=== PATIENT | female | born 1965 | race Caucasian/White ===

== ENCOUNTER → 2017-10-09 | Day surgery (SDC) | payer BC, OTHER ==
[2017-09-19 07:39] VITALS: Ht 160 cm; Wt 90.9 kg
[~2017-10-09] VITALS: Ht 160 cm; Wt 90.9 kg
[~2017-10-09] MED LIST: ADVIN25/60 INH; CHOL1TAB42 PO; COQ10 PO; GLC/500 PO; LEVO50TA6 PO; LIDOCAINE HCL 2% 2 ML VIAL (20MG/ML) ONE; MULT-506 PO; PRM625 PO; PROPOFOL IV EMULSION 10 MG/ML 20 ML VIAL IV ONE; SODIUM CHLORIDE 0.9% 500ML 500 ML IV ONE
[2017-10-09 13:39] VITALS: TEMP 37
--- NOTE | 2017-10-09 13:44 | Endo History and Physical ---
History & Physical Date of Service: Oct 09, 2017. Chief Complaint: RLQ pain, and diarrhea Referring Physician: Dr Maxx Dove History of Present Illness change in BM; abd pain Past Surgical History Hx Cardiac Surgery: No Hx Internal Defibrillator: No Hx Pacemaker: No Hx Abdominal Surgery: Yes (RT/LEFT OOPHERECTOMY, CAMI, LAPAROSCOPY'S ) Hx of Implantable Prosthesis: No Hx Post-Op Nausea and Vomiting: No Hx Cancer Surgery: No Hx Thoracic Surgery: No Hx Orthopedic: No Hx Urinary Tract Surgery: No Family History Polyp Social History Smoking Status: Never Smoker Hx Substance Use: No Hx Alcohol Use: Yes (1 GLASS OF WINE 5 X WEEKLY) Allergies Coded Allergies: Erythromycin (Verified Allergy, Intermediate, HIVES, 10/28/09) Penicillins (Verified Allergy, Intermediate, HIVES, 10/28/09) Horse Serum Proteins (Verified Allergy, Unknown, 09/27/05) Metformin (Verified Allergy, Unknown, ELEVATED LACTOSE LEVELS, 10/28/09) Phenol (Verified Allergy, Unknown, RASH,SOB, 10/28/09) Sulfa Drugs (Verified Allergy, Unknown, RASH,HIVES, 10/28/09) Current Medications Reported Home Medications Medications Dose Route/Sig Max Daily Dose Days Date Category Dose Instructions [Coq10] 1 Tab PO DAILY PRN 09/19/17 Reported Advair Diskus 250/50 60 Dose (Fluticasone Prop/Salmeterol) 1 Ea Aerp 1 Puff INH BID PRN 09/19/17 Reported Vitamin D (Cholecalciferol) 5,000 Unit Tab 2 Tab PO QAM 09/19/17 Reported Multivitamin (Multivitamins) Tab 1 Tab PO QAM 09/19/17 Reported Levothyroxine Sodium 50 Mcg Tab 1 Tab PO QAM 09/19/17 Reported Premarin (Estrogens Conjugated) 0.625 Mg Tab 0.625 Mg PO QAM 09/19/17 Reported Glucophage (Metformin Hcl) 500 Mg Tab 500 Mg PO BID 09/19/17 Reported WILL NOT TAKE IF "EATING WELL" Vital Signs Weight (Kilograms): 90.91 Height (Feet): 5 Height (Inches): 3 Physical Exam General Appearance: WD/WN, no apparent distress Respiratory/Chest: Auscultation: breath sounds normal Cardiovascular: Heart Auscultation: RRR Abdomen: Bowel Sounds: normal Inspection & Palpation: soft, non-distended, no tenderness, guarding & rebound Assessment and Plan colonoscopy with biopsy
--- NOTE | 2017-10-09 15:33 | GI REPORT ---
Procedure Date: 10/09/2017 2:58 PM Procedure: Colonoscopy Indications: Abdominal pain in the right lower quadrant, Chronic diarrhea Medicines: Propofol per Anesthesia Complications: No immediate complications. Estimated blood loss: Minimal. Estimated Blood Loss: Estimated blood loss was minimal. Procedure: Pre-Anesthesia Assessment: - Prior to the procedure, a History and Physical was performed, and patient medications and allergies were reviewed. The patient's tolerance of previous anesthesia was also reviewed. The risks and benefits of the procedure and the sedation options and risks were discussed with the patient. All questions were answered, and informed consent was obtained. Prior Anticoagulants: The patient has taken no previous anticoagulant or antiplatelet agents. ASA Grade Assessment: II - A patient with mild systemic disease. After reviewing the risks and benefits, the patient was deemed in satisfactory condition to undergo the procedure. After I obtained informed consent, the scope was passed under direct vision. Throughout the procedure, the patient's blood pressure, pulse, and oxygen saturations were monitored continuously. The scope was introduced through the anus and advanced to the terminal ileum, with identification of the appendiceal orifice and IC valve. The colonoscopy was performed without difficulty. The patient tolerated the procedure well. The quality of the bowel preparation was good. Findings: The perianal and digital rectal examinations were normal. Pertinent negatives include normal sphincter tone, no palpable rectal lesions and no anal lesion or abnormality was detected. The rectum, descending colon, transverse colon, ascending colon and ileum appeared normal. Biopsies were taken with a cold forceps for histology. Estimated blood loss was minimal. Verification of patient identification for the specimen was done by the physician and physical science technician using the patient's name and medical record number. The retroflexed view of the distal rectum and anal verge was normal and showed no anal or rectal abnormalities. The entire examined colon appeared normal. Impression: - The rectum, descending colon, transverse colon, ascending colon and terminal ileum are normal. Biopsied. Recommendation: - Discharge patient to home (ambulatory). - Resume regular diet. - Continue present medications. - Await pathology results. - Repeat colonoscopy for surveillance based on pathology results. - Return to GI clinic with Dr Olivera as previously scheduled. MD Pepe Gramajo MD 10/09/2017 3:32:14 PM This report has been signed electronically. Note Initiated On: 10/09/2017 2:58 PM I attest to the content of the Intraoperative Record and orders documented therein, exceptions below
--- NOTE | 2017-10-09 15:41 | Discharge Instructions ---
Endoscopy Patient Instructions Date / Procedure(s) Performed Oct 09, 2017. Colonoscopy Allergy Information Coded Allergies: Erythromycin (Verified Allergy, Intermediate, HIVES, 10/09/17) Penicillins (Verified Allergy, Intermediate, HIVES, 10/09/17) Sulfa Antibiotics (Verified Allergy, Intermediate, RASH, HIVES, 10/09/17) Horse Serum Proteins (Verified Allergy, Unknown, THROAT SWELLED- A CHILD , 10/09/17) Metformin (Verified Allergy, Unknown, ELEVATED LACTOSE LEVELS, 10/09/17) Phenol (Verified Allergy, Unknown, RASH,SOB, 10/09/17) Discharge Date / Findings Oct 09, 2017. normal colon Medication Instructions Stopped Medication(s): Metformin Restart Stopped Medication(s): Reported Home Medications Medications Dose Route/Sig Max Daily Dose Days Date Category Dose Instructions [Coq10] 1 Tab PO DAILY PRN 09/19/17 Reported Advair Diskus 250/50 60 Dose (Fluticasone Prop/Salmeterol) 1 Ea Aerp 1 Puff INH BID PRN 09/19/17 Reported Vitamin D (Cholecalciferol) 5,000 Unit Tab 2 Tab PO QAM 09/19/17 Reported Multivitamin (Multivitamins) Tab 1 Tab PO QAM 09/19/17 Reported Levothyroxine Sodium 50 Mcg Tab 1 Tab PO QAM 09/19/17 Reported Premarin (Estrogens Conjugated) 0.625 Mg Tab 0.625 Mg PO QAM 09/19/17 Reported Glucophage (Metformin Hcl) 500 Mg Tab 500 Mg PO BID 09/19/17 Reported WILL NOT TAKE IF "EATING WELL" Reported Home Medications Medications Dose Route/Sig Max Daily Dose Days Date Category Dose Instructions [Coq10] 1 Tab PO DAILY PRN 09/19/17 Reported Advair Diskus 250/50 60 Dose (Fluticasone Prop/Salmeterol) 1 Ea Aerp 1 Puff INH BID PRN 09/19/17 Reported Vitamin D (Cholecalciferol) 5,000 Unit Tab 2 Tab PO QAM 09/19/17 Reported Multivitamin (Multivitamins) Tab 1 Tab PO QAM 09/19/17 Reported Levothyroxine Sodium 50 Mcg Tab 1 Tab PO QAM 09/19/17 Reported Premarin (Estrogens Conjugated) 0.625 Mg Tab 0.625 Mg PO QAM 09/19/17 Reported Glucophage (Metformin Hcl) 500 Mg Tab 500 Mg PO BID 09/19/17 Reported WILL NOT TAKE IF "EATING WELL" Provider Instructions Activity Restrictions - No exercising or heavy lifting for 24 hours. - Do not drink alcohol the day of the procedure. - Do not drive a car or operate machinery until the day after the procedure. - Do not make any important decisions or sign important papers in 24 hours after the procedure. Following Day: - Return to full activity which may include returning to work/school. Diet Start your diet with liquids and light foods (jello, soup, juice, toast). Then eat your usual diet if not nauseated. Treatment For Common After Affects For mild abdominal pain, bloating, or excessive gas: - Rest - Eat lightly - Lie on right side Follow-Up Information Follow-up with Dr Maxx Dove as scheduled Anesthesia Information What You Should Know You have had a procedure that required some medicine to reduce anxiety and discomfort. This treatment is called moderate sedation. After receiving the treatment, you may be sleepy, but you will be able to breathe on your own. The effects of the treatment may last for several hours. Follow these instructions along with Activity/Diet recommendations noted above: * Do NOT do anything where dizziness or clumsiness would be dangerous. * Rest quietly at home today, then you can be up and about tomorrow. * Have a responsible person stay with you the rest of today. * You may have had an I.V. today. If so, you may take the dressing off later today. Recommendations Call your doctor if: * Trouble breathing * Continuous vomiting for more than 24 hours * Temperature above 101 degrees * Severe abdominal pain or bloating * Pain not relieved by pain medicine ordered * There is increased drainage or redness from any incision * A large amount of rectal bleeding greater than 2-3 tablespoons. (If you had a polyp/s removed or have hemorrhoids, a small amount of blood - from the rectum is to be expected.) * You have any unanswered questions or concerns. IN THE EVENT OF A SERIOUS EMERGENCY, GO TO THE NEAREST EMERGENCY ROOM Your discharge instructions were prepared by provider Pepe Middleton. Patient Instructions Signature Page Davin Vela Patient (or Guardian) Signature/Date: I have read and understand the instructions given to me by my caregivers. Caregiver/RN/Doctor Signature/Date: The above-named patient and/or guardian has received patient instructions on this date. + Original Patient Signature Page (only) stays with chart. Please make copy for patient.
--- NOTE | 2017-10-09 15:55 | Anesthesiology Progress Note ---
Anesthesia Post Op Note Date & Time Oct 09, 2017 at 15:55 Vital Signs Pain Intensity: 0 Vital Signs Past 12 Hours Date Time Temp Pulse Resp B/P (MAP) Pulse Ox O2 Delivery O2 Flow Rate FiO2 10/09/17 15:42 86 16 138/90 (106) 97 Room Air 10/09/17 15:27 97 16 112/79 (90) 97 Room Air 10/09/17 13:39 37.0 94 20 148/77 (100) 95 Room Air Notes Mental Status: alert / awake / arousable, participated in evaluation Pt Amnestic to Procedure: Yes Nausea / Vomiting: adequately controlled Pain: adequately controlled Airway Patency, RR, SpO2: stable & adequate BP & HR: stable & adequate Hydration State: stable & adequate Anesthetic Complications: no major complications apparent
[2017-10-09 15:57] VITALS: BP 133/83; PULSE 87; O2SAT 94
== END | disposition home or self-care (01) ==
LOC: C.GI 13:02
PROVIDERS: ATTEND Internal Medicine Gastroenterology
DX: R10.31 Right lower quadrant pain (principal); R19.7 Diarrhea, unspecified; R19.4 Change in bowel habit; Z79.84 Long term (current) use of oral hypoglycemic drugs

== ENCOUNTER → 2017-10-25 | Outpatient (CLI) | payer OTHER ==
[~2017-10-25] MED LIST changes: -LIDOCAINE HCL 2% 2 ML VIAL (20MG/ML) ONE; -PROPOFOL IV EMULSION 10 MG/ML 20 ML VIAL IV ONE; -SODIUM CHLORIDE 0.9% 500ML 500 ML IV ONE
--- NOTE | 2017-10-28 07:39 | MAMMOGRAPHY REPORT ---
BILATERAL DIGITAL SCREENING MAMMOGRAM TOMOSYNTHESIS WITH CAD: 10/25/2017 CLINICAL HISTORY: Routine screening. Patient has no complaints. TECHNIQUE: Breast tomosynthesis in addition to standard 2D mammography was performed. Current study was also evaluated with a Computer Aided Detection (CAD) system. COMPARISON: Comparison is made to exams dated: 01/25/2016 mammogram, 11/23/2014 mammogram, 11/18/2013 yonathan mogram, 09/10/2012 mammogram, 08/09/2011 mammogram, and 08/07/2010 mammogram - [facility]. BREAST COMPOSITION: There are scattered areas of fibroglandular density in both breasts. FINDINGS: There is a possible mixed density lobulated 14 mm mass within the left upper outer quadran t, best seen on the tomosynthesis images. Additionally, there is an asymmetry seen within the right superior breast seen on the MLO view only, which may represent normal fibroglandular tissue. Recomme nd spot compression tomosynthesis views and possible breast ultrasound for further evaluation. The remainder of both breasts are stable compared to prior exams, without suspicious masses, calcific ations, or areas of architectural distortion noted. IMPRESSION: ACR BI-RADS CATEGORY 0: INCOMPLETE EVALUATION: NEED ADDITIONAL IMAGING EVALUATION Right breast asymmetry and possible left breast mass, for which additional imaging evaluation is penny mmended. The patient will be called to schedule an appointment. Approximately 10% of breast cancers are not detected with mammography. A negative mammographic report should not delay biopsy if a clinically suggestive mass is present. Juanita Billy M.D. /:10/25/2017 16:26:11 Application Systems Engineer: Vani Ospina, [facility] letter sent: Addl Imaging 0 BI-RADS Code: ACR BI-RADS Category 0: Incomplete Evaluation: Need Additional Imaging Evaluation
== END | disposition home or self-care (01) ==
LOC: C.MAMM 09:59
PROVIDERS: ATTEND Nurse Practitioner Family
DX: Z12.31 Encounter for screening mammogram for malignant neoplasm of breast (principal); N64.89 Other specified disorders of breast

== ENCOUNTER → 2017-11-01 | Outpatient (CLI) | payer OTHER ==
--- NOTE | 2017-11-01 15:28 | MAMMOGRAPHY REPORT ---
BILATERAL DIGITAL DIAGNOSTIC MAMMOGRAM TOMOSYNTHESIS AND TARGETED BILATERAL ULTRASOUND: 11/01/2017 CLINICAL HISTORY: Callback from screening mammogram for right breast asymmetry and left breast mass. TECHNIQUE: Breast tomosynthesis in addition to standard 2D mammography was performed. Spot compress ion bilateral CC and MLO 2-D and tomosynthesis images were obtained. COMPARISON: Comparison is made to exams dated: 10/25/2017 mammogram, 01/25/2016 mammogram, 11/23/2014 mamm ogram, 11/18/2013 mammogram, 09/10/2012 mammogram, and 08/09/2011 mammogram - [facility]. BREAST COMPOSITION: There are scattered areas of fibroglandular density in both breasts. FINDINGS: Spot compression views of the left breast demonstrate a persistent low-density lobulated 1 4 mm mass within the left upper outer quadrant, best seen on the tomosynthesis images. The previousl y described asymmetry seen within the right superior breast on the MLO view has the appearance of fib roglandular tissue on the additional tomosynthesis images, without a discrete mass, architectural dis tortion, or other suspicious finding seen in this region on the additional images. Targeted ultrasound was performed of the left breast in the region of the mammographic mass. In the left breast at 3:00, 2 cm from the nipple, there is a lobulated 1.8 x 0.5 x 1.4 cm mass, which is ane choic and contains multiple thin internal septations. This corresponds with the low density mammogra phic mass and likely represents a cyst cluster. However, the mass is indeterminant and ultrasound-gu ided core needle biopsy is recommended for further evaluation. Targeted ultrasound was performed of the right superior breast in the region of the mammographic asym metry, from approximately 11 to 1:00. Sonographically normal tissue is seen in this region on ultras ound, without evidence of a mass or other suspicious sonographic abnormality. IMPRESSION: ACR BI-RADS CATEGORY 4: SUSPICIOUS, TARGETED ULTRASOUND ACR BI-RADS CATEGORY 4: SUSPICIO US 1. Lobulated 1.8 cm mass in the left breast at 3:00 on ultrasound, which corresponds with the low-de nsity mammographic mass. Although the mass likely represents a cyst cluster/fibrocystic changes, the finding is indeterminate and ultrasound-guided core needle biopsy is recommended for further evaluat ion. 2. The right breast asymmetry has the appearance of fibroglandular tissue on the additional spot com pression views, without corresponding sonographic abnormality evident. The asymmetry is probably hi ign and likely represents normal fibroglandular tissue. Recommend follow-up diagnostic tomosynthesis mammograms and possible ultrasound of the right breast in 6 months to confirm stability. A phone call was made to the physician's office to confirm faxed results were received. The patient has been verbally notified of the results. She tentatively scheduled the biopsy before leaving the [facility]. Approximately 10% of breast cancers are not detected with mammography. A negative mammographic report should not delay biopsy if a clinically suggestive mass is present. Juanita Billy M.D. ah/:11/01/2017 11:54:01 Dust Box Tender: Vani Ospina, [facility] letter sent: Abnormal 4/5 BI-RADS Code: ACR BI-RADS Category 4: Suspicious Ultrasound BI-RADS: ACR BI-RADS Category 4: Suspici ous
== END | disposition home or self-care (01) ==
LOC: C.MAMM 11:10
PROVIDERS: ATTEND Nurse Practitioner Family
DX: R92.2 Inconclusive mammogram (principal); N63.20 Unspecified lump in the left breast, unspecified quadrant

== ENCOUNTER → 2017-11-08 | Outpatient (CLI) | payer OTHER ==
--- NOTE | 2017-11-08 08:53 | Discharge Instructions ---
Discharge Instructions Procedure Procedure Date: Nov 08, 2017. Reason for visit: Left Mass. Discharge Discharge Date: Nov 08, 2017. Discharge Diagnosis: status post breast biopsy Instructions Activity Recommendations: Additional Limitations (see below) Return to School/Work: no limitations Recommended Home Diet: No Limitations Provider Instructions: ACTIVITY RECOMMENDATIONS: * No lifting, pushing, pulling or exercising the affected side for three days. RETURN TO SCHOOL/WORK: * You may return to work/school after the procedure, but do not perform any strenuous activities for 24 to 48 hours. MEDICATIONS: * Tylenol (two 325 mg) every four to six hours if needed for mild pain (if not allergic to Tylenol). DIET: * Resume previous diet. SPECIAL CARE INSTRUCTIONS: * Keep biopsy site dry for 24 hours. May shower after 24 hours, but do not soak (bathe) incision. * May remove Tegaderm (plastic patch) tomorrow AFTER showering. * Leave the steri-strips on for one week. Allow the steri-strips to fall off by themselves. If not off after one week, you may remove them. You may place a Bandaid crosswise over the strips, if desired. * Apply ice 10 minutes on and 10 minutes off as needed. * Wear a bra at bedtime to sleep more comfortably for 2-3 days. * Your referring physician should have the results after approximately 5 to 7 business days. * Call for unusual bleeding, fever, drainage, etc or if you have any questions call during normal business hours or after hours call Dr Billy, [phone]. FOLLOW UP VISIT: Follow-up with Referring Physician as scheduled. Allergies Coded Allergies: Erythromycin (Verified Allergy, Intermediate, HIVES, 10/09/17) Penicillins (Verified Allergy, Intermediate, HIVES, 10/09/17) Sulfa Antibiotics (Verified Allergy, Intermediate, RASH, HIVES, 10/09/17) Horse Serum Proteins (Verified Allergy, Unknown, THROAT SWELLED- A CHILD , 10/09/17) Metformin (Verified Allergy, Unknown, ELEVATED LACTOSE LEVELS, 10/09/17) Phenol (Verified Allergy, Unknown, RASH,SOB, 10/09/17) Edmar Strickland Recommendations: Call your doctor if: * Temperature above 101 degrees * Pain not relieved by pain medicine ordered * There is increased drainage or redness from any incision * You have any unanswered questions or concerns. Your Doctors Instructions noted above were prepared by provider Juanita Billy. Patient Signature Section: Patient Instructions Signature Page Davinadi Vela Patient (or Guardian) Signature/Date: I have read and understand the instructions given to me by my caregivers. Caregiver/RN/Doctor Signature/Date: The above-named patient and/or guardian has received patient instructions on this date. + Original Patient Signature Page (only) stays with chart. Please make copy for patient.
--- NOTE | 2017-11-08 14:58 | MAMMOGRAPHY REPORT ---
UNILATERAL LEFT DIGITAL DIAGNOSTIC MAMMOGRAM TOMOSYNTHESIS: 11/08/2017 CLINICAL HISTORY: Status post left breast biopsy. TECHNIQUE: Breast tomosynthesis in addition to standard 2D mammography was performed. Postprocedura l left CC and ML tomosynthesis images were obtained. COMPARISON: Comparison is made to exams dated: 11/01/2017 ultrasound, 11/01/2017 mammogram, 10/25/2017 yonathan mogram, 01/25/2016 mammogram, 11/23/2014 mammogram, and 11/18/2013 mammogram - [facility] BREAST COMPOSITION: There are scattered areas of fibroglandular density in the left breast. FINDINGS: A new biopsy marker clip is seen at the site of the biopsied mass in the left 3:00 breast. No significant postbiopsy hematoma is seen. IMPRESSION: POST PROCEDURE IMAGING FOR MARKER PLACEMENT New biopsy marker clip status post left breast biopsy. Pathology results are pending. Approximately 10% of breast cancers are not detected with mammography. A negative mammographic report should not delay biopsy if a clinically suggestive mass is present. Juanita Billy M.D. ah/:11/08/2017 09:04:58 Restaurant Hostess: Juanita Billy MD, [facility] BI-RADS Code: Post Procedure Imaging For Marker Placement
--- NOTE | 2017-11-08 14:58 | MAMMOGRAPHY REPORT ---
ULTRASOUND GUIDED BIOPSY LEFT BREAST: 11/08/2017 CLINICAL HISTORY: Left 3:00 breast mass. PATIENT CONSENT: The procedure, risks and benefits were discussed with the patient and informed writt en consent was obtained. A timeout was performed immediately prior to the procedure. PROCEDURE DESCRIPTION: With ultrasound guidance, aseptic technique, and lidocaine as the local anesth etic (1% lidocaine to anesthetize the skin and 1% lidocaine with epinephrine to anesthetize the deepe r tissues), the mass of concern in the left 3:00 breast was sampled 3 times with a 14-gauge Achieve b iopsy needle. Immediately thereafter, with ultrasound guidance, aseptic technique, and lidocaine as the local anesthetic, a metallic localizer clip was placed centrally in the mass. Direct pressure wa s applied to the site immediately post procedure and hemostasis was achieved. Postprocedure unilater al mammograms were performed to confirm placement of the clip in the expected location of the breast mass. The patient tolerated the procedure without complication. She was given wound care instructio ns. The specimens were sent to pathology for analysis. COMPARISON: Comparison is made to exams dated: 11/01/2017 ultrasound, 11/01/2017 mammogram, 10/25/2017 yonathan mogram, 01/25/2016 mammogram, 11/23/2014 mammogram, and 11/18/2013 mammogram - [facility] IMPRESSION: ULTRASOUND GUIDED BIOPSY Ultrasound guided core needle biopsy of the left 3:00 breast mass, with clip placement. The patient will receive pathology results from her referring provider. Juanita Billy M.D. ah/:11/08/2017 08:54:33 Duck Operator: Vani MORALES)(M), [facility]
== END | disposition home or self-care (01) ==
LOC: C.MAMM 08:25
PROVIDERS: ATTEND Nurse Practitioner Family
DX: R92.8 Other abnormal and inconclusive findings on diagnostic imaging of breast (principal); N63.20 Unspecified lump in the left breast, unspecified quadrant; N60.92 Unspecified benign mammary dysplasia of left breast

== ENCOUNTER → 2018-05-05 | Outpatient (CLI) | payer OTHER ==
--- NOTE | 2018-05-05 13:10 | MAMMOGRAPHY REPORT ---
UNILATERAL RIGHT DIGITAL DIAGNOSTIC MAMMOGRAM TOMOSYNTHESIS WITH CAD AND RIGHT ULTRASOUND: 05/05/2018 CLINICAL HISTORY: 52-year-old woman presents for follow-up in the right breast. She is 6 months statu s post benign biopsy in the left breast. Follow-up right superior asymmetry. TECHNIQUE: Right CC and MLO 2D and tomosynthesis images were obtained. Current study was also evalua dario with a Computer Aided Detection (CAD) system. COMPARISON: Comparison is made to exams dated: 11/08/2017 mammogram, 11/01/2017 mammogram, 10/25/2017 yonathan mogram, 01/25/2016 mammogram, 11/01/2017 ultrasound, and 11/23/2014 mammogram - [facility] BREAST COMPOSITION: There are scattered areas of fibroglandular density in right breast. FINDINGS: There is partial effacement of the asymmetry in the anterior superior right breast on the M LO view. The current glandular tissue pattern is similar to numerous prior mammograms including the 2010 and 2008 exams, suggesting it represents normal fibroglandular tissue. There is a 2.3 x 2.5 x 4 .6 mm focal asymmetry in the 12:00 far posterior right breast, and a 3.4 mm nodular asymmetry in the slightly lateral, middle one third of the right breast for which further evaluation with ultrasound w as performed. No suspicious spiculated mass, architectural distortion, or suspicious calcifications seen in the right breast. Targeted ultrasound was performed throughout the superior right breast with particular attention to t he 12:00 axis. An 11:00 right breast, 4 cm from the nipple, there is an oval parallel circumscribed anechoic cyst with posterior acoustic enhancement and no internal vascularity. It measures 3.7 x 2.4 x 3.3 mm and likely corresponds with the asymmetry seen in the slightly lateral right breast. Howev er, no other discrete solid or cystic mass is seen. No definite sonographic correlate for the 4.6 mm focal asymmetry in the 12:00 posterior right breast. No suspicious sonographic correlate for the ef facing asymmetry in the superior right breast on the MLO view. IMPRESSION: ACR-BI-RADS CATEGORY 3: PROBABLY BENIGN, ULTRASOUND ACR-BI-RADS CATEGORY 3: PROBABLY NAINA GN 1. The right superior asymmetry is less prominent on the current exam, and appears more similar to t he 2010 and 2009 mammograms suggesting normal overlapping tissue. No sonographic correlate was seen. This finding is considered benign. 2. However, there is a newly visualized 4.6 mm focal asymmetry in the 12:00 posterior right breast, without definite sonographic correlate identified. Although this could represent a benign cyst that was not visualized on ultrasound, long-term stability is not demonstrated on prior mammograms and the refore a short interval follow-up right diagnostic mammogram and possible ultrasound is recommended i n 6 more months to ensure stability. Annual left mammography will also be due at that time (October 2018). These results and recommendations were discussed with the patient at the time of the exam. Some breast cancers are not detected with mammography. A negative mammographic report should not rosi y biopsy if a clinically suggestive mass is present. Ellen Woods M.D. ay/:05/05/2018 12:26:08 Supervisor Assembly: RT Christopher(Jojo)(M), [facility]; Amalia Lom[facility] letter sent: Follow Up Recommended 3 OVERALL STUDY BIRADS: 3 Probably benign
== END | disposition home or self-care (01) ==
LOC: C.MAMM 10:58
PROVIDERS: ATTEND Nurse Practitioner Family
DX: N64.89 Other specified disorders of breast (principal)